=== PATIENT | male | born 1970 | race African-American/Black ===

== ENCOUNTER 2020-09-25 04:28 | Emergency (ER) | payer SELFPAY ==
[2020-09-25] MEDS ORDERED: CEFTRIAXONE INJ 250 MG VIAL IM ONE (05:42)
[2020-09-25] MEDS ORDERED: AZITHROMYCIN 250 MG TABLET PO ONE (05:43)
--- NOTE | 2020-09-25 05:51 | ER Document Report ---
ED General - General Chief Complaint: STD Exposure Stated Complaint: STD CHECK Time Seen by Provider: 09/25/20 05:11 [facility] - Follow up as needed - [facility] Notes: Patient is a 50-year-old male with no medical history who presents for STD check. Patient states 1.5 weeks ago he was having sex and the condom broke. Since then he has noticed increased urinary frequency as well as an odor to his urine. He states his "stomach just does not feel right ". He denies pain, nausea, vomiting, and penile discharge. He has no history of prior STDs or UTIs . Patient is a occasional smoker and reports smoking about a pack every 2 weeks. He denies alcohol use. - Related Data Allergies/Adverse Reactions: No Known Allergies Allergy (Verified 09/25/20 04:42) Past Medical History - General Information source: Patient - Social History Smoking Status: Current Some Day Smoker Family History: Reviewed & Not Pertinent Review of Systems - Review of Systems Constitutional: No symptoms reported EENT: No symptoms reported Cardiovascular: No symptoms reported Respiratory: No symptoms reported Gastrointestinal: No symptoms reported Genitourinary: See HPI Male Genitourinary: No symptoms reported Musculoskeletal: No symptoms reported Skin: No symptoms reported Hematologic/Lymphatic: No symptoms reported Neurological/Psychological: No symptoms reported Physical Exam - Vital signs Vitals: Temp Pulse Resp BP Pulse Ox 98.2 F 83 16 128/86 H 100 09/25/20 04:38 09/25/20 04:38 09/25/20 04:38 09/25/20 04:38 09/25/20 04:38 - Notes Notes: PHYSICAL EXAMINATION: GENERAL: Well-appearing, well-nourished and in no acute distress. HEAD: Atraumatic, normocephalic. EYES: sclera anicteric, conjunctiva are normal. ENT: Moist mucous membranes. NECK: Normal range of motion LUNGS: Normal work of breathing HEART: 2+ radial pulses bilaterally ABDOMEN: Soft, nontender abdomen with normoactive bowel sounds in all four quadrants. No CVA tenderness. GENITOURINARY: Genitalia normal appearing with no visible lesions or ulcerations. Circumsized penis. No penile discharge or tenderness. EXTREMITIES: no pitting or edema. No cyanosis. NEUROLOGICAL: No focal neurological deficits. Moves all extremities spontaneously and on command. PSYCH: Normal mood, normal affect. SKIN: Warm, Dry, normal turgor, no rashes or lesions noted. Course - Re-evaluation Re-evalutation: Patient is a 50-year-old male who presents for an STD check. He reports increased urinary frequency as well as an odor to his urine. Vital signs are within normal limits and patient is afebrile. On exam, normal-appearing genitalia with no visible lesions or ulcerations. Urine gonorrhea and chlamydia ordered. Patient treated prophylactically with azithromycin 1 g PO and ceftriaxone 250 IM. Patient informed that he will be called if he is positive for gonorrhea or chlamydia. Patient will be discharged home. Return precautions and follow-up instructions given. Recommended that the patient follow-up with the health department for further STD testing. Patient understands and is in agreement with plan. - Vital Signs Vital signs: Temp Pulse Resp BP Pulse Ox 98.3 F 68 16 124/64 100 09/25/20 05:56 09/25/20 05:56 09/25/20 05:56 09/25/20 05:56 09/25/20 05:56 Discharge - Discharge Clinical Impression: STD exposure, Urinary frequency Condition: Stable Disposition: HOME, SELF-CARE Additional Instructions: You were tested for Chlamydia and Gonorrhea today and treated prophylactically with antibiotics. You will be notified if your test results are positive. If positive your partner will also need to be treated. Abstain from sex for one week and use condoms regularly to prevent/minimize transmission of STDs. Return if worsening of symptoms, or if you begin to have fever, persistent vomiting, or worsening pain. Follow up with the health department for further STD testing. [facility] - Follow up as needed
[2020-09-25 05:57] VITALS: BP 124/64
[2020-09-25 08:05] LABS: CHLAM PCR NOT DETECTED (NOT DETECT)
== END 2020-09-25 05:57 | disposition home or self-care (01) ==
LOC: ER 04:28
DX: Z20.2 Contact with and (suspected) exposure to infections with a predominantly sexual mode of transmission (principal); R35.0 Frequency of micturition; R39.89 Other symptoms and signs involving the genitourinary system; F17.200 Nicotine dependence, unspecified, uncomplicated
CPT/HCPCS: 99284; 96372; 87491; 87591; J0696